=== PATIENT | female | born 1975 | race Caucasian/White ===

== ENCOUNTER 2024-06-23 08:24 | Emergency (ER) | payer OTHER, SELFPAY ==
[2024-06-23] VITALS (8 sets, daily range): BP systolic 136–175; BP diastolic 76–109; BMI 36.4
--- NOTE | 2024-06-23 09:26 | ED.GENMED ---
History of Present Illness
General
Chief Complaint: Swelling
Source: patient and spouse
Exam Limitations: none
Time Seen by Provider: 06/23/24 09:09
Nursing documentation reviewed up to this point in time: agreed with
History of Present Illness
History of Present Illness:
49-year-old female past medical history of hypertension GERD presenting to the emergency department today with concerns of a new heart murmur at the primary care doctor as well as bilateral lower extremity swelling and also some swelling and
puffiness to her face over the past day or so. She has been dealing with an upper respiratory syndrome over the past few weeks with some coughing some mild shortness of breath. Specific chest pain denies any fevers recently. Her primary care
doctor claims that she has never had a murmur in the past and which prompted her to be sent to the ER. She is also noticed edema to lower extremities has been ongoing over the past week symmetrically bilaterally that she is never had in the past.
Denies any specific edema of the face currently but did have some upon awakening over the past few days.
Review of Systems
Review of Systems
Allergies reviewed?: Yes
All Other Systems: ROS reviewed and negative except as documented in HPI and ROS
Phy Exam
Physical Exam
Physical Exam:
GENERAL: Alert , in no apparent distress
EYE: pupils equal and reactive
NECK: Supple, no significant adenopathy.
ENT: o/p clr, mmm.
CARDIAC: Regular rate and rhythm .
LUNGS: Clear breath sounds bilaterally, no acute respiratory distress, no wheezes/rales/rhonchi
ABDOMEN: Soft, without focal tenderness, no r/g, no cvat
NEUROLOGICAL: Alert and oriented, no focal neuro deficits
SKIN: Warm and dry, skin intact.
MUSCULOSKELETAL: +1 pitting edema to the lower extremities bilaterally distal to the knees , well perfused.
PSYCH: Normal and appropriate interaction.
Scores
Heart Failure Risk
Heart Failure Risk Score: Not Applicable
Course
Orders/Labs/Results
Orders:
Orders
06/23/24 08:30
Electrocardiogram (*1) Urgent
Reason for Study: Abnormal EKG
EKG- Treatment ONCE
06/23/24 09:23
Cardiac Monitoring- Treatment ONCE
CR Chest - 2 Views Urgent
Comment:
Reason For Exam: sob
06/23/24 09:32
Complete Blood Count/With Diff Urgent
Comprehensive Metabolic Panel Urgent
Magnesium Urgent
NT-proBNP Urgent
TSH Urgent
Troponin I Urgent
06/23/24 10:17
Acetaminophen [Tylenol] 1,000 mg PO NOW STA
06/23/24 11:16
Echo 2D MMode Color/Doppler Urgent
Reason for Study: new systolic murmur, peripheral edema
Abnormal Lab Results
06/23/24
09:32
RBC 3.63 L 10^6/uL
(4.20-5.40)
Hgb 11.0 L g/dL
(12.0-16.0)
Hct 32.8 L %
(37.0-47.0)
ALT 37 H U/L
(0-35)
TSH 0.42 L uIU/ml
(0.47-4.68)
06/23/24 09:32
06/23/24 09:32
Vital Signs
Initial and Last Documented VS:
Initial Vital Signs
Temp Pulse Resp BP Pulse Ox
98 F 68 16 162/102 97
06/23/24 08:26 06/23/24 08:26 06/23/24 08:26 06/23/24 08:26 06/23/24 08:26
Last Documented Vital Signs
Temp Pulse Resp BP Pulse Ox
98 F 62 20 163/100 94
06/23/24 08:26 06/23/24 14:30 06/23/24 14:30 06/23/24 14:29 06/23/24 14:30
MDM/Problems Addressed
MDM/Problems Addressed:
49-year-old female presenting to the emergency department with concerns of a heart murmur that was discovered by the primary care doctor just prior to arrival. Also has noted some intermittent facial swelling upon awakening in the morning as well
as a leg swelling this been ongoing for least the past few days. Has had some mild shortness of breath. Denies any specific chest no recent trauma surgery immobilization, estrogen product usage history of blood clots. Blood pressure elevated on
arrival otherwise vital signs are normal. Normal pulse ox. Patient in no distress. Labs showing slight elevation of BNP of 500 troponin negative. Chest x-ray normal. Echo was performed that showed possible bicuspid aortic valve and possible
mild aortic stenosis potentially causing patient's symptoms. Patient was advised to start Lasix Case fully discussed with cardiology that reviewed the case and give recommendations. She will follow-up closely as an outpatient. Return precautions
given.
*Critical Care Note
Total Time (30-74mins, 75-104mins- exclusive of procedures): Not Applicable
ED Attending Note
-
Portions of this chart may have been created with voice recognition software.� Occasional wrong word or��sound alike� substitutions may have occurred due to the inherent limitations of voice recognition software.
Discharge Plan
Departure
Patient Disposition: Home (Routine Discharge)
Date of Disposition: 06/23/24
Time of Disposition: 15:10
Patient with high blood pressure during this ER visit?: No
Condition: Good
Covid-19: Not Applicable
Discharge Problem:
Edema, peripheral, Aortic stenosis
Instructions: Dependent Edema (DC), *DCA Heart Failure Instructions
Prescriptions:
New
furosemide [Lasix] 20 mg tablet
20 mg PO DAILY 14 Days Qty: 14 0RF
No Action
lisinopril 20 mg Tablet
20 mg PO DAILY
lansoprazole 30 mg Capsule,Delayed Release(Dr/Ec)
30 mg PO DAILY
ibuprofen [Advil] 200 mg Tablet
200 mg PO Q6HPRN PRN (Reason: mild pain)
vitamin B complex [B-50] Tablet
1 tab PO DAILY
escitalopram oxalate [Lexapro] 20 mg Tablet
20 mg PO HS
cholecalciferol (vitamin D3) [Vitamin D3] 50 mcg (2,000 unit) Capsule
50 mcg PO DAILY
Referrals:
Katia Leonard DO [Family Provider] -
Activity Restrictions/Additional Instructions:
You came to the emergency department today with concerns of a new murmur and swelling. You had an echo here that showed possible mild aortic stenosis. Please take Lasix 20 mg daily and follow-up closely with cardiology. Return to the emergency
department any worsening, new or concerning symptoms.
Interventions
Interventions:
*Risk Screen - Suicide Last Done: 06/23/24 08:30
*General Assessment Last Done: 06/23/24 09:25
*Neglect/Abuse Screening Last Done: 06/23/24 08:30
ED- Fall Risk Assessment Last Done: 06/23/24 09:56
*ED COVID-19 Vaccine History Last Done: 06/23/24 08:29
ED- Cardiac Assessment Last Done: 06/23/24 09:25
ED- Pulmonary Assessment Last Done: 06/23/24 09:25
ED-Skin Assessment Last Done: 06/23/24 09:25
Discharge Date and Time
Print Language: MONGOLIAN
[2024-06-23 09:50] LABS: % Basophils 0.6 % (0-2); % Eosinophils 3.9 % (0-6); % Immature Granulocytes 0.5 % (0-0.5); % Lymphocytes 20.6 % (20.5-51.1); % Monocytes 8.2 % (1.7-9.3); % Neutrophils 66.2 % (42.2-75.2); Absolute Eosinophils 0.3 10^3/uL (0-0.7); Absolute Lymphocytes 1.4 10^3/uL (1.2-3.4); Absolute Monocytes 0.5 10^3/uL (0.1-0.6); Absolute Neutrophils 4.4 10^3/uL (1.4-6.5); Hematocrit 32.8 % (37.0-47.0); Mean Corp Hgb Conc. 33.5 g/dL (33.0-37.0); Mean Corpuscular Hgb 30.3 pg (27.0-31.0); Mean Corpuscular Volume 90.4 fL (81.0-99.0); Mean Platelet Volume 9.9 fL (7.4-10.4); Nucleated Red Blood Cells % 0 %; Platelet Count 293 10^3/uL (130-400); Red Blood Cell Count 3.63 10^6/uL (4.20-5.40); Red Cell Dist. Width 13.3 % (11.5-14.5); White Blood Cell Count 6.6 10^3/uL (4.8-10.8)
[2024-06-23 10:05] LABS: ALT (SGPT) 37 U/L (0-35); AST (SGOT) 34 U/L (14-36); Albumin 4.3 g/dl (3.5-5.0); Alkaline Phosphatase 104 U/L (38-126); Blood Urea Nitrogen 15 mg/dl (7-17); Calcium 9.3 mg/dl (8.4-10.2); Carbon Dioxide 30 mmol/L (22-30); Chloride 105 mmol/L (98-107); Estimated Creatinine Clearance 104 ml/min; Glucose 80 mg/dl (70-99); Magnesium 2.2 mg/dl (1.6-2.3); Potassium 4.3 mmol/L (3.5-5.1); Sodium 140 mmol/L (135-145); Total Bilirubin 0.4 mg/dl (0.2-1.3); Total Protein 7.1 g/dl (6.3-8.2); eGFR > 60.00
[2024-06-23 10:16] LABS: NT-proBNP 523 pg/ml; Troponin I < 0.012 ng/ml
[2024-06-23] MEDS: TYLENOL 1000 MG PO (10:19)
[2024-06-23 10:34] LABS: TSH 0.42 uIU/ml (0.47-4.68)
== END 2024-06-23 15:22 | disposition home or self-care (01) ==
LOC: EMR 08:24
PROVIDERS: Physician Assistant; EMERGENCY PHYSICIAN Student in an Organized Health Care Education/Training Program; FAMILY PHYSICIAN Family Medicine
DX: I35.0 Nonrheumatic aortic (valve) stenosis (principal); R60.0 Localized edema; I10 Essential (primary) hypertension; K21.9 Gastro-esophageal reflux disease without esophagitis
CPT/HCPCS: 99285; 71046; 80053; 83735; 83880; 84443; 84484; 85025; 93005; 93306